=== PATIENT | male | born 1945 | race Caucasian/White ===

== ENCOUNTER → 2019-07-25 | Outpatient (CLI) | payer OTHER ==
[~2019-07-25] MED LIST: CLONAZEPAM 1 MG1 M1 PO; CYANOCOBAL1000 MCG/1 INJECTION; FUROSEMIDE 20 M20 MG PO; HYTRIN 2MG CAPSU2 M1 PO; OXYCODONE HCL E10 MG PO; REFRESH RELIEVA10 ML OPHTHALMIC; SERTRALINE HCL100 MG PO; TIAZAC240 M1 PO; VITAMIN D31000 UNI2 PO; VOLTAREN GEL 1100 G1 TOP
== END | disposition home or self-care (01) ==
LOC: M.PC 13:46
DX: M47.816 Spondylosis without myelopathy or radiculopathy, lumbar region (principal); M51.36 Other intervertebral disc degeneration, lumbar region; M54.5 Low back pain; Z98.890 Other specified postprocedural states; Z79.899 Other long term (current) drug therapy; Z79.891 Long term (current) use of opiate analgesic; Z88.8 Allergy status to other drugs, medicaments and biological substances

== ENCOUNTER → 2019-08-08 | Outpatient (CLI) | payer OTHER | END | disposition home or self-care (01) | LOC: M.PC 03:23 | DX: M25.551 Pain in right hip (principal); M16.11 Unilateral primary osteoarthritis, right hip; M54.5 Low back pain; M51.36 Other intervertebral disc degeneration, lumbar region; M47.896 Other spondylosis, lumbar region; Z98.890 Other specified postprocedural states; Z79.899 Other long term (current) drug therapy; Z88.8 Allergy status to other drugs, medicaments and biological substances ==

== ENCOUNTER → 2019-08-22 | Outpatient (CLI) | payer OTHER | LOC: M.PC 05:01 | DX: M47.816 Spondylosis without myelopathy or radiculopathy, lumbar region (principal); M51.36 Other intervertebral disc degeneration, lumbar region; Z79.899 Other long term (current) drug therapy ==

== ENCOUNTER → 2019-12-05 | Outpatient (CLI) | payer OTHER | END | disposition home or self-care (01) | LOC: M.PC 04:30 | DX: M25.551 Pain in right hip (principal); M25.552 Pain in left hip; M16.11 Unilateral primary osteoarthritis, right hip; M51.36 Other intervertebral disc degeneration, lumbar region; M47.896 Other spondylosis, lumbar region; Z98.890 Other specified postprocedural states; Z79.899 Other long term (current) drug therapy; Z88.8 Allergy status to other drugs, medicaments and biological substances ==

== ENCOUNTER → 2021-07-20 | Outpatient (CLI) | payer OTHER | END | disposition home or self-care (01) | LOC: M.PC 08:14 | PROVIDERS: ATTEND Physical Medicine & Rehabilitation | DX: M25.561 Pain in right knee (principal); M25.562 Pain in left knee; M17.0 Bilateral primary osteoarthritis of knee; Z98.890 Other specified postprocedural states; Z79.899 Other long term (current) drug therapy; Z88.8 Allergy status to other drugs, medicaments and biological substances ==

== ENCOUNTER → 2021-07-27 | Outpatient (CLI) | payer OTHER | END | disposition home or self-care (01) | LOC: M.PC 10:27 | PROVIDERS: ATTEND Physical Medicine & Rehabilitation | DX: M17.0 Bilateral primary osteoarthritis of knee (principal); M25.561 Pain in right knee; M25.562 Pain in left knee; M16.0 Bilateral primary osteoarthritis of hip; M51.16 Intervertebral disc disorders with radiculopathy, lumbar region; M47.26 Other spondylosis with radiculopathy, lumbar region; Z98.890 Other specified postprocedural states; Z79.899 Other long term (current) drug therapy; Z88.8 Allergy status to other drugs, medicaments and biological substances ==

== ENCOUNTER → 2021-08-03 | Outpatient (CLI) | payer OTHER | END | disposition home or self-care (01) | LOC: M.PC 10:42 | PROVIDERS: ATTEND Physical Medicine & Rehabilitation | DX: M17.0 Bilateral primary osteoarthritis of knee (principal); M16.0 Bilateral primary osteoarthritis of hip; M25.561 Pain in right knee; M25.562 Pain in left knee; M54.59 Other low back pain; M51.36 Other intervertebral disc degeneration, lumbar region; M47.896 Other spondylosis, lumbar region; Z98.890 Other specified postprocedural states; Z79.899 Other long term (current) drug therapy; Z88.6 Allergy status to analgesic agent ==

== ENCOUNTER → 2021-08-10 | Outpatient (CLI) | payer OTHER | END | disposition home or self-care (01) | LOC: M.PC 10:46 | PROVIDERS: ATTEND Physical Medicine & Rehabilitation | DX: M25.562 Pain in left knee (principal); M25.561 Pain in right knee; M17.0 Bilateral primary osteoarthritis of knee; M54.59 Other low back pain; M16.0 Bilateral primary osteoarthritis of hip; M51.36 Other intervertebral disc degeneration, lumbar region; M47.896 Other spondylosis, lumbar region; G89.29 Other chronic pain; I10 Essential (primary) hypertension; Z98.890 Other specified postprocedural states; Z79.899 Other long term (current) drug therapy; Z88.8 Allergy status to other drugs, medicaments and biological substances ==